=== PATIENT | male | born 2000 | race Caucasian/White ===

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

== ENCOUNTER 2019-02-05 13:16 | Emergency (ER) | payer SELFPAY ==
[2019-02-05] MEDS ORDERED: NEOMY SULF/POLYMYX B SULF/HC OTIC SUSP 10 ML AS ONE (13:41)
--- NOTE | 2019-02-05 13:46 | ER Document Report ---
HPI - HPI Patient complains to provider of: strep throat Time Seen by Provider: 02/05/19 13:36 Pain Level: 4 Context: 18 male otherwise healthy presents to the emergency department with chief complaint of strep throat. He said his symptoms started 3 days ago and he has sore throat, left ear pain, dysphagia, congestion, cough. Denies fever. Denies anterior neck tenderness. Denies shortness of breath or chest pain. Denies neck stiffness or headache. Past Medical History - Social History Smoking Status: Never Smoker Family History: None Renal/ Medical History: Denies: Hx Peritoneal Dialysis GI Medical History: Reports: Hx Gastroesophageal Reflux Disease Past Surgical History: Reports: Hx Orthopedic Surgery - Left Wrist Vertical Provider Document - CONSTITUTIONAL Notes: PHYSICAL EXAMINATION: Reviewed vital signs and charting by RN GENERAL: Alert, interacts well. No acute distress. HEAD: Normocephalic, atraumatic. EYES: Pupils equal and round. Extraocular movements intact. ENT: Oral mucosa moist, tongue midline. 1+ tonsillar hypertrophy bilateral with erythema; tenderness of the left ear when tugging on it and placing the otoscope in the ear NECK: Full range of motion. Trachea midline. LUNGS: Clear to auscultation bilaterally, no wheezes, rales, or rhonchi. No respiratory distress. HEART: Regular rate and rhythm. No murmur ABDOMEN: soft, non-tender. No distention. Bowel sounds present EXTREMITIES: Moves all 4 extremities spontaneously. No edema, No cyanosis. PSYCH: Normal affect, normal mood. SKIN: Warm, dry, normal turgor. No rashes or lesions noted. - INFECTION CONTROL TRAVEL OUTSIDE OF THE [place] IN LAST 30 DAYS: No Course - Re-evaluation Re-evalutation: 02/05/19 13:45 Generally well-appearing. Patient does have symptoms consistent with a mild otitis externa and I will treat appropriately. Rapid strep obtained and is pending. 02/05/19 14:12 Presentation of several days of sore throat in an otherwise well-appearing patient. Rapid strep is negative. History and exam are not consistent with a retropharyngeal abscess or peritonsillar abscess. Airway is patent. No difficulty handling oral secretions. Vitals within normal limits. Patient was treated with a dose of dexamethasone and advised on symptomatic care. Suspect likely viral pharyngitis. At this time will discharge with return precautions and follow-up recommendations. Verbal discharge instructions given a the bedside and opportunity for questions given. Medication warnings reviewed. Consuelo chambers is in agreement with this plan and has verbalized understanding of return precautions and the need for primary care follow-up in the next 24-72 hours. - Vital Signs Vital signs: Temp Pulse Resp BP Pulse Ox 98.7 F 87 18 136/65 H 97 02/05/19 13:24 02/05/19 13:24 02/05/19 13:24 02/05/19 13:24 02/05/19 13:24 Discharge - Discharge Clinical Impression: Otitis externa, left Qualifiers: Otitis externa type: swimmer's ear Chronicity: acute Qualified Code(s): H60.332 - Swimmer's ear, left ear Pharyngitis Qualifiers: Pharyngitis/tonsillitis etiology: unspecified etiology Qualified Code(s): J02.9 - Acute pharyngitis, unspecified Condition: Good Disposition: HOME, SELF-CARE Instructions: Use of Ear Drops ([facility]), Otitis Externa ([facility]) Additional Instructions: Your strep test is negative. Your symptoms are likely due to an viral infection and will resolve in the next 1-2 weeks. You have also been given a dose of steroids to help with your throat discomfort. Please continue to take ibuprofen 600 mg every 6 hours or Tylenol 1000 mg every 6 hours as needed for throat discomfort. You can also gargle with salt water. Continue to drink plenty of fluids. Follow-up with your primary care doctor in the next several days. Return if you become unable to swallow, have difficulty breathing, pass out, have persistent vomiting that prevents you from being able to tolerate fluids, or have any other symptoms that are concerning to you. Also, I have given you eardrops that you can use in your ear if you continue to have symptoms of ear pain. [place] may be developing an early swimmer's ear. Please follow directions on the bottle and how to take them but you should put 4 drops in your ear 3 times a day for 1 week.
[2019-02-05 15:43] VITALS: BP 145/62
== END 2019-02-05 15:30 | disposition home or self-care (01) ==
LOC: ER 13:16
DX: H60.332 Swimmer's ear, left ear (principal); J02.9 Acute pharyngitis, unspecified; H92.02 Otalgia, left ear; R13.10 Dysphagia, unspecified; R09.81 Nasal congestion; R05 Cough
CPT/HCPCS: 99283; 87070; 87880; 87077; J3490